=== PATIENT | female | born 1960 | race Caucasian/White ===

== ENCOUNTER 2017-09-01 17:02 | Outpatient (CLI) | payer OTHER ==
--- NOTE | 2017-09-02 17:34 | Ultrasound Report ---
PELVIC ULTRASOUND: 09/01/2017 CLINICAL INDICATION: Dysfunctional uterine bleeding. TECHNIQUE: Transabdominal pelvic ultrasound performed for global evaluation. Transvaginal pelvic ultrasound performed for detailed evaluation. Real-time scanning performed and static images obtained. FINDINGS: The uterus is anteverted, measuring 10.7 x 6.1 x 5.4 cm. The endometrial echo complex measures 13 mm. There is a 2.5 x 2.2 x 2.0 cm heterogeneous nodule in the upper cervix. Correlation with Pap smear results is recommended. This may represent a leiomyoma arising from the lower uterine segment. The right ovary measures 3.1 x 2.0 x 1.7 cm. A 1.6 cm right paraovarian cyst is noted. The left ovary measures 3.8 x 2.9 x 2.9 cm, and contains a follicle. No free fluid is present. IMPRESSION: A 2.5 CM HETEROGENEOUS NODULE IN THE UPPER CERVIX. CORRELATION WITH PAP SMEAR RESULTS IS RECOMMENDED. THIS MAY REPRESENT A LEIOMYOMA ARISING FROM THE LOWER UTERINE SEGMENT. TD: 09/02/2017 17:32
== END 2017-09-01 17:03 | disposition home or self-care (01) ==
LOC: DI 17:02
PROVIDERS: ATTEND Family Medicine
DX: N88.9 Noninflammatory disorder of cervix uteri, unspecified (principal)
CPT/HCPCS: 76830; 76856

== ENCOUNTER 2017-11-24 13:12 | Outpatient (CLI) | payer OTHER ==
--- NOTE | 2017-11-25 13:38 | Mammography Report ---
DIGITAL SCREENING MAMMOGRAM: 11/24/2017 CLINICAL INDICATION: A 57-year-old for screening. COMPARISON: 12/2014, 10/2011. TECHNIQUE: Routine CC and MLO projections were obtained of the breasts. FINDINGS: The breasts demonstrate heterogeneously dense fibroglandular parenchyma bilaterally. Punctate, typically benign calcifications are present. No suspicious masses, clustered microcalcifications, or regions of architectural distortion are identified. IMPRESSION: BENIGN FINDINGS. RECOMMENDATION: Routine annual screening unless otherwise clinically indicated. BI-RADS CATEGORY 2 - BENIGN FINDINGS. STANDARD QUALIFYING STATEMENTS: 1. This examination was reviewed with the aid of Computer-Aided Detection (CAD). 2. A negative or benign imaging report should not delay biopsy if clinically suspicious findings are present. Consider surgical consultation if warranted. More than 5% of cancers are not identified by imaging. 3. Dense breasts may obscure an underlying neoplasm. TD: 11/25/2017 13:23
== END 2017-11-24 13:13 | disposition home or self-care (01) ==
LOC: DI 13:12
PROVIDERS: ATTEND Physician Assistant Medical
DX: Z12.31 Encounter for screening mammogram for malignant neoplasm of breast (principal)
CPT/HCPCS: 77067

== ENCOUNTER 2017-11-24 20:56 | Outpatient (CLI) | payer OTHER ==
--- NOTE | 2017-11-25 10:22 | Ultrasound Report ---
PELVIC ULTRASOUND: 11/24/2017 CLINICAL INDICATION: Dysfunctional uterine bleeding. COMPARISON: 09/01/2017. TECHNIQUE: Transabdominal pelvic ultrasound performed for global evaluation. Transvaginal pelvic ultrasound performed for detailed evaluation. Real-time scanning performed and static images obtained. FINDINGS: The uterus is anteverted, measuring 10.9 x 6.2 x 5.0 cm. The endometrium measures 12 mm. A heterogeneous nodule is again seen in the lower uterine segment/upper cervix measuring 2.2 x 2.0 x 1.7 cm, suspicious for a polyp. The right ovary measures 2.8 x 1.7 x 1.4 cm, and appears unremarkable. The left ovary measures 3.3 x 3.1 x 1.9 cm, and contains a 2 cm follicle. No free fluid is present. IMPRESSION: 1. PERSISTENT HETEROGENEOUS NODULE IN THE LOWER UTERINE SEGMENT/UPPER CERVIX. 2. 12 MM ENDOMETRIUM. 3. LEFT OVARIAN FOLLICLE. TD: 11/25/2017 10:17
== END 2017-11-24 20:57 | disposition home or self-care (01) ==
LOC: DI 20:56
PROVIDERS: ATTEND Physician Assistant Medical
DX: N92.4 Excessive bleeding in the premenopausal period (principal); D26.1 Other benign neoplasm of corpus uteri
CPT/HCPCS: 76830; 76856

== ENCOUNTER 2019-06-27 18:28 | Emergency (ER) | payer OTHER ==
--- NOTE | 2019-06-27 18:58 | ED Physician Documentation ---
PD HPI FEMALE - Stated complaint Stated Complaint: FEMALE - Chief complaint Chief Complaint: Abd Pain - History obtained from History obtained from: Patient (59-year-old woman who has not yet gone through menopause, she states that menopause runs late in her whole family. Last year she had an episode like this with thickened endometrium and may be a polyp. She followed up and per her endometrial biopsy was negative. She still has regular menses although she skipped 1 but for the last 48 hours has been bleeding heavily with clots with mild weakness. No significant pain.) Review of Systems Constitutional: reports: Fatigue. denies: Fever, Chills GI: denies: Abdominal Pain, Nausea, Vomiting, Diarrhea : denies: Dysuria, Frequency PD PAST MEDICAL HISTORY - Present Medications Home Medications: Ambulatory Orders Medication Instructions Recorded Confirmed Medroxyprogesterone Acetate 10 mg PO DAILY #7 tablet 06/27/19 [Provera] - Allergies Allergies/Adverse Reactions: Allergies Allergy/AdvReac Type Severity Reaction Status Date / Time No Known Drug Allergies Allergy Verified 06/27/19 18:36 PD ED PE NORMAL - Vitals Vital signs reviewed: Yes - General General: Alert and oriented X 3, No acute distress - Abdomen Abdomen: Soft, Non tender - Derm Derm: No rash - Neuro Neuro: Alert and oriented X 3, Normal speech Results - Vitals Vitals: Vital Signs - 24 hr 06/27/19 18:36 Temperature 36.5 C Heart Rate 72 Respiratory 16 Rate Blood Pressure 170/85 H O2 Saturation 100 Oxygen O2 Source Room air - Labs Labs: Laboratory Tests 06/27/19 06/27/19 06/27/19 19:01 19:01 19:01 WBC 11.1 H RBC 2.50 L Hgb 8.0 L Hct 23.9 L MCV 95.6 MCH 32.0 H MCHC 33.5 RDW 13.4 Plt Count 221 MPV 10.2 Neut # (Auto) 8.0 H Lymph # (Auto) 2.2 [place] # (Auto) 0.7 Eos # (Auto) 0.1 Baso # (Auto) 0.1 Absolute Nucleated RBC 0.00 Nucleated RBC % 0.0 PT 10.5 INR 0.9 Sodium 138 Potassium 4.0 Chloride 103 Carbon Dioxide 27 Anion Gap 8.0 BUN 14 Creatinine 0.8 Estimated GFR (MDRD) 74 L Glucose 110 H Calcium 8.7 Serum HCG, Qual 06/27/19 19:01 WBC RBC Hgb Hct MCV MCH MCHC RDW Plt Count MPV Neut # (Auto) Lymph # (Auto) [place] # (Auto) Eos # (Auto) Baso # (Auto) Absolute Nucleated RBC Nucleated RBC % PT INR Sodium Potassium Chloride Carbon Dioxide Anion Gap BUN Creatinine Estimated GFR (MDRD) Glucose Calcium Serum HCG, Qual NEGATIVE PD MEDICAL DECISION MAKING - ED course ED course: 59yo F witgh VB H/O polyp Hgb now 8, no priors. Hemodynamics are fine. 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 Continue provera 10mg po daily x7d. F/U in office. Departure - Departure Disposition: 01 Home, Self Care Clinical Impression: Vaginal bleeding, Cervical mass, Endometrial polyp Condition: Good Record reviewed to determine appropriate education?: Yes Instructions: ED Bleed Irregular Vaginal Follow-Up: Monica Belle MD [Provider Admit Priv/Credential] - Within 1 week Prescriptions: Medroxyprogesterone Acetate [Provera] 10 mg PO DAILY #7 tablet Comments: Return anytime if worse. start your iron
[2019-06-27 19:10] LABS: BASOPHILS # (AUTO) 0.1 10^3/uL (0.0-0.1); BASOPHILS % (AUTO) 0.5 %; EOSINOPHILS # (AUTO) 0.1 10^3/uL (0.0-0.7); EOSINOPHILS % (AUTO) 0.8 %; LYMPHOCYTES # (AUTO) 2.2 10^3/uL (1.5-3.5); LYMPHOCYTES % (AUTO) 19.7 %; MEAN CORPUSCULAR HGB CONC 33.5 g/dL (32.0-36.0); MEAN CORPUSCULAR VOLUME 95.6 fL (81.0-99.0); MEAN PLATELET VOLUME 10.2 fL (7.9-10.8); MONOCYTES # (AUTO) 0.7 10^3/uL (0.0-1.0); MONOCYTES % (AUTO) 6.1 %; NEUTROPHILS % (AUTO) 71.6 %; PLT - PLATELET COUNT 221 10^3/uL (130-450); RED CELL DISTRIBUTION WIDTH 13.4 % (12.0-15.0); WHITE BLOOD COUNT 11.1 x10^3/uL (4.8-10.8)
[2019-06-27 19:14] LABS: INR 0.9 (0.8-1.2); PT - PROTHROMBIN TIME 10.5 secs (9.9-12.6)
[2019-06-27 19:16] LABS: CALCIUM 8.7 mg/dL (8.5-10.3); CREATININE 0.8 mg/dL (0.4-1.0)
[2019-06-27 19:53] LABS: HCG,QUALITATIVE BLOOD NEGATIVE
--- NOTE | 2019-06-27 20:28 | Ultrasound Report ---
Reason: vag bleed, eval endometrium Procedure Date: 06/27/2019 Accession Number: [id number] / [id number] Procedure: US - Transvaginal CPT Code: Final Report FULL RESULT: EXAM: PELVIC ULTRASOUND EXAM DATE: 06/27/2019 07:56 PM. CLINICAL HISTORY: Vaginal bleeding. Passing clots. COMPARISON: PELVIC W/TRANSVAGINAL 11/24/2017 10:21 PM. TECHNIQUE: Realtime transabdominal pelvic scan performed to identify the uterus and adnexa and as an overview of other pelvic structures, followed by transvaginal scan to provide greater detail of the uterus and adnexa, with static image documentation. FINDINGS: Uterus: Anteverted position. Normal overall size and echotexture. Masses: None. Endometrium: Septated, heterogeneous, with thickness of 11 mm right and 11 mm left. Lower endometrial polyp 15 x 4 x 12 mm. Cervix: Expanded by a heterogeneous vascular 2.4 x 2.1 x 2.2 cm abnormality. Right Ovary: Normal echotexture and blood flow. Left Ovary: Normal echotexture and blood flow. Free Fluid: None. Other: None. IMPRESSION: 1. Lower endometrial polyp 15 x 4 x 12 mm. 2. Large heterogeneous vascular abnormality within the cervix 2.4 x 2.1 x 2.2 cm. RADIA
[2019-06-27 20:58] VITALS: BP 121/79
== END 2019-06-27 21:25 | disposition home or self-care (01) ==
LOC: ED 18:28
DX: N93.9 Abnormal uterine and vaginal bleeding, unspecified (principal); N88.8 Other specified noninflammatory disorders of cervix uteri; N84.0 Polyp of corpus uteri
CPT/HCPCS: 36415; 76830; 80048; 84703; 85025; 85610; 99283; 99284; A9270; 81025

== ENCOUNTER 2019-06-29 09:36 | Day surgery (SDC) | payer OTHER ==
[2019-06-29 10:44] LABS: BASOPHILS % (AUTO) 0.2 %; EOSINOPHILS # (AUTO) 0.1 10^3/uL (0.0-0.7); EOSINOPHILS % (AUTO) 0.3 %; LYMPHOCYTES # (AUTO) 1.6 10^3/uL (1.5-3.5); LYMPHOCYTES % (AUTO) 9.2 %; MEAN CORPUSCULAR HEMOGLOBIN 31.1 pg (27.0-31.0); MEAN CORPUSCULAR VOLUME 97.2 fL (81.0-99.0); MEAN PLATELET VOLUME 9.9 fL (7.9-10.8); MONOCYTES # (AUTO) 0.9 10^3/uL (0.0-1.0); NEUTROPHILS # (AUTO) 14.5 10^3/uL (1.5-6.6); NEUTROPHILS % (AUTO) 82.9 %; PLT - PLATELET COUNT 211 10^3/uL (130-450); RED CELL DISTRIBUTION WIDTH 14.1 % (12.0-15.0); WHITE BLOOD COUNT 17.5 x10^3/uL (4.8-10.8)
[2019-06-29 10:47] LABS: HGB - HEMOGLOBIN 5.6 g/dL (12.0-16.0)
[2019-06-29 11:02] LABS: ALBUMIN 3.1 g/dL (3.2-5.5); ALBUMIN/GLOBULIN RATIO 1.6 (1.0-2.2); BILIRUBIN,TOTAL 0.2 mg/dL (0.2-1.0); CALCIUM 7.9 mg/dL (8.5-10.3); CREATININE 0.8 mg/dL (0.4-1.0); TOTAL PROTEIN 5.1 g/dL (6.7-8.2)
--- NOTE | 2019-06-29 11:29 | ED Physician Documentation ---
PD HPI ABD PAIN - Stated complaint Stated Complaint: FEMALE - Chief complaint Chief Complaint: Abd Pain - History obtained from History obtained from: Patient - History of Present Illness Timing - onset: Other (59-year-old woman with late menopause. Seen Sonam barber, 2 days ago for heavy bleeding. Ultrasound showed an endometrial polyp and a cervical lesion, hemoglobin was 8. Consulted with gynecology at the time who recommended Provera. Despite taking Provera and the prescribed dose she continues to bleed heavily with clots and dizziness when she stands up. Really no pain.) Review of Systems Ten Systems: 10 systems reviewed and negative Constitutional: reports: Fatigue Cardiac: denies: Chest pain / pressure, Palpitations Respiratory: denies: Dyspnea, Cough PD PAST MEDICAL HISTORY - Past Medical History Past Medical History: No [employer]: Other - Past Surgical History Past Surgical History: Yes General: Appendectomy - Present Medications Home Medications: Ambulatory Orders Medication Instructions Recorded Confirmed Medroxyprogesterone Acetate 10 mg PO DAILY #7 tablet 06/27/19 [Provera] - Allergies Allergies/Adverse Reactions: Allergies Allergy/AdvReac Type Severity Reaction Status Date / Time No Known Drug Allergies Allergy Verified 06/29/19 09:55 - Social History Does the pt smoke?: No Smoking Status: Never smoker Does the pt have substance abuse?: No - Family History Family history: reports: Non contributory PD ED PE NORMAL - Vitals Vital signs reviewed: Yes - General General: Alert and oriented X 3, No acute distress - HEENT HEENT: PERRL, EOMI - Neck Neck: Supple, no meningeal sign, No bony TTP - Cardiac Cardiac: RRR, No murmur - Respiratory Respiratory: No respiratory distress, Clear bilaterally - Abdomen Abdomen: Soft, Non tender - Back Back: No CVA TTP, No spinal TTP - Derm Derm: Normal color, Warm and dry - Extremities Extremities: No edema, No calf tenderness / cord - Neuro Neuro: Alert and oriented X 3, Normal speech Results - Vitals Vitals: Vital Signs - 24 hr 06/29/19 06/29/19 09:53 10:41 Temperature 36.2 C L Heart Rate 96 75 Respiratory 15 16 Rate Blood Pressure 132/78 H 115/78 O2 Saturation 100 100 Oxygen O2 Source Room air - Labs Labs: Laboratory Tests 06/29/19 06/29/19 06/29/19 10:25 10:25 10:25 WBC 17.5 H RBC 1.80 L Hgb 5.6 L* Hct 17.5 L* MCV 97.2 MCH 31.1 H MCHC 32.0 RDW 14.1 Plt Count 211 MPV 9.9 Neut # (Auto) 14.5 H Lymph # (Auto) 1.6 [place] # (Auto) 0.9 Eos # (Auto) 0.1 Baso # (Auto) 0.0 Absolute Nucleated RBC 0.03 Nucleated RBC % 0.2 Sodium 136 Potassium 3.9 Chloride 102 Carbon Dioxide 27 Anion Gap 7.0 BUN 9 Creatinine 0.8 Estimated GFR (MDRD) 74 L Glucose 105 H Calcium 7.9 L Total Bilirubin 0.2 AST 23 ALT 15 Alkaline Phosphatase 34 L Total Protein 5.1 L Albumin 3.1 L Globulin 2.0 L Albumin/Globulin Ratio 1.6 Lipase 28 Blood Type Recheck Crossmatch IS Only See Detail 06/29/19 10:54 WBC RBC Hgb Hct MCV MCH MCHC RDW Plt Count MPV Neut # (Auto) Lymph # (Auto) [place] # (Auto) Eos # (Auto) Baso # (Auto) Absolute Nucleated RBC Nucleated RBC % Sodium Potassium Chloride Carbon Dioxide Anion Gap BUN Creatinine Estimated GFR (MDRD) Glucose Calcium Total Bilirubin AST ALT Alkaline Phosphatase Total Protein Albumin Globulin Albumin/Globulin Ratio Lipase Blood Type Recheck O POSITIVE Crossmatch IS Only PD MEDICAL DECISION MAKING - ED course ED course: Hemoglobin was 8 now 5.6, spoke with Dr. Gonzalez after my evaluation about 1125 who will come in and see the patient. Blood was readied. Departure - Departure Disposition: ED Transfer to [facility] Clinical Impression: Cervical mass, Vaginal bleeding, Endometrial polyp Condition: Serious
[2019-06-29] MEDS ORDERED: LIDOCAINE MPF 2%-EPI 1:200000 20 ML VIAL ONE (13:18)
[2019-06-29] MEDS ORDERED: MIDAZOLAM 2 MG/2 ML VIAL IVP ONE (13:26)
[2019-06-29] MEDS ORDERED: ROCURONIUM 50 MG/5 ML VIAL IVP ONE (13:26)
[2019-06-29] MEDS ORDERED: NEOSTIGMINE 1 MG/1 ML 10 ML MDV IVP ONE (13:26)
[2019-06-29] MEDS ORDERED: PROPOFOL 200 MG/20 ML VIAL IVP ONE (13:26)
[2019-06-29] MEDS ORDERED: ePHEDrine 50 MG/ML VIAL IVP ONE (13:26)
[2019-06-29] MEDS ORDERED: fentaNYL 100 MCG/2 ML VIAL IVP ONE (13:26)
[2019-06-29] MEDS ORDERED: LACTATED RINGERS 1,000 ML IV ONE ×2 (13:28→14:35)
[2019-06-29] MEDS ORDERED: METHYLERGONOVINE 0.2 MG/ML VIAL ONE (13:36)
[2019-06-29] MEDS ORDERED: CARBOPROST TROMETHAMINE 250 MCG/ML AMP IM ONE (13:36)
[2019-06-29] MEDS ORDERED: miSOPROStoL 200 MCG TABLET ONE (13:36)
--- NOTE | 2019-06-29 14:07 | ANESTHESIA ---
Pre-Anesthesia VS, & Labs - Diagnosis vaginal bleeding, anemia - Procedure hysteroscopy, D&C Vital Signs: Temp Pulse Resp BP Pulse Ox 36.9 C 86 16 107/67 98 06/29/19 13:15 06/29/19 13:30 06/29/19 13:30 06/29/19 13:30 06/29/19 11:34 Height 5 ft 4 in Weight (kg) 68.039 kg Body Mass Index 25.7 - NPO Last Food Intake: 4 hours - Is Patient ?: No - Lab Results Current Lab Results: Laboratory Tests 06/29/19 10:54: Blood Type Recheck O POSITIVE 06/29/19 10:25: Blood Type O POSITIVE, Antibody Screen NEGATIVE, Crossmatch IS Only See Detail 06/29/19 10:25: Sodium 136, Potassium 3.9, Chloride 102, Carbon Dioxide 27, Anion Gap 7.0, BUN 9, Creatinine 0.8, Estimated GFR (MDRD) 74 L, Glucose 105 H, Calcium 7.9 L, Total Bilirubin 0.2, AST 23, ALT 15, Alkaline Phosphatase 34 L, Total Protein 5.1 L, Albumin 3.1 L, Globulin 2.0 L, Albumin/Globulin Ratio 1.6, Lipase 28 06/29/19 10:25: WBC 17.5 H, RBC 1.80 L, Hgb 5.6 L*, Hct 17.5 L*, MCV 97.2, MCH 31.1 H, MCHC 32.0, RDW 14.1, Plt Count 211, MPV 9.9, Neut # (Auto) 14.5 H, Lymph # (Auto) 1.6, [place] # (Auto) 0.9, Eos # (Auto) 0.1, Baso # (Auto) 0.0, Absolute Nucleated RBC 0.03, Nucleated RBC % 0.2 Lab results reviewed: Yes Fish Bones: 06/29/19 10:25 06/29/19 10:25 Home Medications and Allergies Allergies/Adverse Reactions: Allergies Allergy/AdvReac Type Severity Reaction Status Date / Time No Known Drug Allergies Allergy Verified 06/29/19 09:55 Anes History & Medical History - Anesthetic History Anesthesia Complications: reports: No previous complications Family history of Anesthesia Complications: Denies Family history of Malignant Hyperthermia: Denies - Medical History Cardiovascular: reports: None, Congestive heart failure Urinary: reports: Other Musculoskeletal: reports: None (recent vaginal bleeding) Smoking Status: Never smoker - Surgical History General: Appendectomy Exam General: Alert, Oriented x3, Cooperative Dental: WNL Mouth Openin Fingerbreadth Neck Mobility: Reduced Thyromental Distance: 4-6 cm Respiratory: Lungs clear, Normal breath sounds Neurological: Normal speech Mental/Cognitive Status: Alert/Oriented X3, Normal for patient Cognitive Status: Within normal limits, Other (describe below) Plan Anesthesia Type: General Consent for Procedure(s) Verified and Reviewed: Yes Code Status: Attempt Resuscitation ASA classification: 1-Healthy patient Is this case an emergency?: Yes
[2019-06-29] MEDS ORDERED: LIDOCAINE 2%-EPI 1:100000 20 ML MDV SUBQ ONE ×2 (14:18)
[2019-06-29 14:30] LABS: HCG UR QUAL NEGATIVE
[2019-06-29] MEDS ORDERED: SILVER NITRATE APPLICATOR TOP ONE ×2 (14:52→14:55)
[2019-06-29] MEDS ORDERED: ONDANSETRON ODT 4 MG TABLET TL PRN (15:12)
[2019-06-29] MEDS ORDERED: IBUPROFEN 600 MG TABLET PO PRN (15:12)
[2019-06-29] MEDS ORDERED: oxyCODONE 5 MG TABLET PO PRN (15:12)
[2019-06-29] MEDS ORDERED: ACETAMINOPHEN 500 MG TABLET PO PRN (15:12)
[2019-06-29] MEDS ORDERED: SODIUM CHLORIDE FLUSH 0.9% 10 ML SYRINGE IVP PRN (15:12)
--- NOTE | 2019-06-29 15:19 | OPERATIVE REPORT ---
Operative Report - General Procedure Date: 06/29/19 Planned Procedure: HSC, D&C, removal of intracavitary uterine mass Pre-Op Diagnosis: AUB, uterine mass Procedure Performed: same Post Op Diagnosis: AUB, uterine mass - Procedure Note Primary Surgeon: Carlos Anesthesia Technique: General ET tube Pathology: Uterine intracavitary mass & curettings IV Fluids (mL): 1,200 (1200 crystalloid, 600 PRBC) Estimated Blood Loss (mL): 20 Findings: Intracavitary mass in [place]/upper cervix. Both ostea seen. Not septated. Complications: none
[2019-06-29] MEDS ORDERED: LACTATED RINGERS 1,000 ML IV SCH (16:00)
--- NOTE | 2019-06-29 16:11 | HISTORY & PHYSICAL EXAMINATION ---
DATE OF SERVICE: 06/29/2019 Physician: Jasmyn Gonzalez MD CHIEF COMPLAINT: Heavy period and dizziness. HISTORY OF PRESENT ILLNESS: The patient is a 59-year-old who is still menstruating. She presented t o the ER two days ago with heavy menstrual bleeding. She received an ultrasound that day as she was hemodynamically stable. Her hematocrit that day was 23.9. The patient was healthy and wanted to alexandra id transfusion. She was placed on Provera and sent home with precautions. Over the past two days, she has continued to have heavy bleeding. She is soaking an overnight pad ev paola 3 hours. She is also passing clots into the toilet that are the diameter of a plum. She has beg un feeling more tired and faint. She is feeling like her heart is beating very fast after she walks up stairs. She feels her heart pounding in her ears. She has an increased heart rate while standing . She has a headache as well, which is uncommon for her. Her menses used to be monthly until about three to four months ago. They were very light in general with true flow for three days and some spo tting for three days prior to that. She described that flow is "light". Then, with this cycle, she d id not feel herself ovulate. She had increased breast tenderness and bloating as compared to usual. Her period then started heavy and has continued. She does not have any bleeding between her cycles. She is not sexually active. She is not on contraception. She was seen by Dr. Soto for an evaluation in the spring of 2017 for another heavy period. Her mense s were normal in the interim. Her workup included an ultrasound that revealed an intrauterine cavity mass that measured 1.6 cm on 07/01/2018. She received an endometrial biopsy on 12/28/2017 that was d isordered proliferative with polypoid fragments suggestive of benign endometrial polyps. Her Pap on 10/25/2017 showed a normal Pap and negative high-risk HPV. Her hematocrit in 2014 was 41. When she had her heavy period last year in 08/2017, it was 33. PAST MEDICAL HISTORY: Negative. PAST SURGICAL HISTORY: The patient had an open appendectomy at 13 years old that sounds like it was ruptured at the time of removal. She then developed a wound infection one week later and her wound n eeded to be reopened. She also had thumb surgery. No personal history of anesthesia complications. FAMILY HISTORY: No anesthesia complications. SOCIAL HISTORY: No tobacco, alcohol or drug use. 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 ALLERGIES: NO KNOWN DRUG ALLERGIES. MEDICATIONS: No prescription medications. She has taken iron t.i.d. for the past two days. She als o intermittently takes fish oil, vitamin D, and multivitamins. REVIEW OF SYSTEMS: No fevers or URI symptoms. She last consumed nontransparent liquids at 0800. Kurt rodriguez has not received any food since yesterday. PHYSICAL EXAMINATION: VITAL SIGNS: Temperature 36.2, heart rate 78, respirations 16, blood pressure 115/78, oxygen saturat ion 100% on room air. GENERAL: The patient is alert and appears comfortable. She is also pale. HEART: Regular rate and rhythm with a 2/6 systolic murmur. LUNGS: Clear to auscultation bilaterally. ABDOMEN: Soft, nontender, nondistended without masses. EXTREMITIES: Without clubbing, cyanosis or edema. The patient is ambulatory and does not have any n eurologic deficits. LABORATORY: Ultrasound on 06/27/2019 revealed a "septated uterus" with an endometrium of 11 mm and a 15 x 4 x 12 mm lesion consistent with an endometrial polyp. In the cervix, there was a 2.4 x 2.1 x 2 .1 cm circular mass with increased color flow to it. I reviewed this ultrasound and her prior ultras ound. Her prior ultrasound did not suggest a septic uterus. I am wondering if she just had some org anized clot that gave that appearance on the current ultrasound. I am not convinced about the upper endometrial polyp because there was not any color flow to that area, and again I am suspicious of org anized clot. At her last ultrasound, this mass was in the same location and measured 1.6 cm. Her he matocrit was 23.9 on the 06/27/2019. Today it is 17.5. ASSESSMENT AND PLAN: A healthy 59-year-old with a likely anovulatory period complicated by ongoing h eavy bleeding, anemia that is worsening despite hormonal management, and intracavitary uterine mass. As her anemia is symptomatic and her hematocrit is quite low, she has been counseled to receive pack ed red blood cells. She was counseled about the risks and benefits of this and is accepting of the b lood. She will receive 2 units. If she is oozy during the surgery, then we will also give FFP. The patient's intracavitary uterine mass has been rather stable over time. It is only grown from 1.6 cm to 2.1 cm in the past 22 months. Last year, she had a benign biopsy and she has had normal Pap s mear. I do think that this stable mass appearance decreases the chance of sarcoma by quite a bit. We reviewed the patient's options for treatment that include: 1. Ongoing management with Provera, which is not working now and was not recommended. 2. Adding estrogen to the progesterone which can be more stabilizing to the endometrium, but I do no t recommend this either because of the following. 3. Sampling of the uterine masses is recommended at this point. The least invasive way to do this w ould be to do a hysteroscopy, dilation and curettage, and MyoSure resection of the masses. The patie nt chooses this option for treatment. She is aware that it might not cure her bleeding, but hopefull y it will. She is aware that the procedure was recommended to sample the masses. Additional treatme nt to help the bleeding itself was recommended and declined by the patient. We discussed using a James babatunde IUD or endometrial ablation to help to manage future menses. She is wary of too much interventio n. [place] or away from immediate medical care. She is reliable . Therefore, I think that her decision for hysteroscopy alone is reasonable. 4. Her final option is hysterectomy, which the patient declines for now. As she is never remote for medical care, I agree that a hysterectomy is not absolutely necessary at this time, especially since she is 59 and hopefully her last period is just around the corner. The patient is continuing to have uterine bleeding at the age of 59. This sounds like menses, as it is a cyclic and she feels herself ovulating and has not gone through a period of amenorrhea. Her mot her and sisters also went through menopause in their late 50s. We will plan to go to the OR now for her hysteroscopy, D and C, and mass resection. We will give 2 u nits of packed red blood cells. We will observe on postop for bleeding. If she is stable and is asy mptomatic from an anemia standpoint, then she may go home later on this evening. TD: 06/29/2019 13:49
[2019-06-29] MEDS ORDERED: SODIUM CHLORIDE FLUSH 0.9% 10 ML SYRINGE IVP SCH (17:00)
[2019-06-29 19:43] VITALS: BP 101/61
--- NOTE | 2019-06-29 19:44 | Discharge Plan ---
Discharge Plan Problem Reviewed?: Yes Disposition: Home, Self Care Condition: Good Diet: Regular Activity Restrictions: No Restrictions Shower Restrictions: No Driving Restrictions: Yes (not for 24h) No Smoking: If you smoke, Please STOP! Call for help.
[2019-06-29 19:52] LABS: BASOPHILS % (AUTO) 0.3 %; HGB - HEMOGLOBIN 8.6 g/dL (12.0-16.0); LYMPHOCYTES % (AUTO) 2.5 %; MEAN CORPUSCULAR HEMOGLOBIN 31.3 pg (27.0-31.0); MEAN CORPUSCULAR HGB CONC 33.3 g/dL (32.0-36.0); MEAN CORPUSCULAR VOLUME 93.8 fL (81.0-99.0); MEAN PLATELET VOLUME 9.8 fL (7.9-10.8); MONOCYTES % (AUTO) 1.3 %; NEUTROPHILS % (AUTO) 93.6 %; PLT - PLATELET COUNT 203 10^3/uL (130-450); RED BLOOD COUNT 2.75 10^6/uL (4.20-5.40); WHITE BLOOD COUNT 24.9 x10^3/uL (4.8-10.8)
[2019-06-29 19:56] LABS: ABNORMAL LYMPHS % (MANUAL) 0 %
[2019-06-29 20:27] LABS: BAND NEUTROPHILS % (MANUAL) 1 %; DIFFERENTIAL COMMENT MANUAL DIFFERENTIAL; EOSINOPHILS # (MANUAL) 0.2 10^3/uL (0-0.7); LYMPHOCYTES % (MANUAL) 4 %; PLATELET ESTIMATE, MANUAL NORMAL (130-450,000) (NORMAL); PLATELET MORPHOLOGY NORMAL APPEARANCE (NORMAL); RBC MORPHOLOGY (MULTIPLE) NORMAL APPEARANCE (NORMAL)
--- NOTE | 2019-06-30 01:55 | OPERATIVE REPORT ---
DATE OF SERVICE: 06/29/2019 Physician: Jasmyn Gonzalez MD PREOPERATIVE DIAGNOSES 1. Abnormal uterine bleeding. 2. Acute blood loss anemia. 3. Intracavitary uterine mass. POSTOPERATIVE DIAGNOSES 1. Abnormal uterine bleeding. 2. Acute blood loss anemia. 3. Intracavitary uterine mass. PROCEDURE PERFORMED: Hysteroscopy, dilation and curettage, and hysteroscopic removal of intracavitar y mass. SURGEON: Jasmyn Gonzalez MD. VEHICLE DYNAMICS ENGINEER: None. ANESTHESIA: General. ESTIMATED BLOOD LOSS: 20 mL INTRAVENOUS FLUIDS: A total of 1800 mL; 1200 were crystalloid and 600 packed red blood cells. URINE OUTPUT: None--The patient voided immediately prior to going to the operating room. COUNTS: Correct x2. COMPLICATIONS: None apparent. DISPOSITION: Stable to the recovery room. PROPHYLAXIS: SCDs to bilateral lower extremities. No antibiotics indicated. SPECIMENS: Intracavitary uterine mass and endometrial curettings sent to pathology. FINDINGS 1. Normal uterine cavity shape and both tubal ostia were seen. No evidence of septation. 2. There was fluffy endometrial tissue, but no discrete polyps were seen. 3. There was a large intracavitary mass filling the upper cervix and the lower uterine segment. It was firm and round, consistent with fibroid. COUNSELING: The patient is a 59-year-old who continues to have regular menses. Her menses this yovanny h was very heavy, which is not usual for her. She presented to the ER with hematocrit of 24 two days ago. It was asymptomatic and she was placed on Provera. Forty eight hours later, she presents with symptomatic anemia and a hematocrit of 15. Her transfusion was started in the ER and she was consen deloris for surgical treatment. She was offered the procedure that we performed with or without addition of an IUD or NovaSure endometrial ablation in order to control future bleeding. She declined treatm ent for future bleeding and, instead, wanted to focus on sampling her intracavitary mass. She was aw are that the surgery might not work to correct her current bleeding. She was also offered hysterecto my, which she currently declines. DESCRIPTION OF PROCEDURE: The patient was brought to the operating room and induced with general ane sthesia. She was placed in low lithotomy and Yellofin stirrups. Bimanual examination revealed an an teverted uterus and no adnexal masses. She was prepped and draped in the usual sterile fashion. A s peculum was placed and a single-tooth tenaculum was applied on the anterior lip of the cervix. Then, 12 mL of a paracervical block was injected in divided doses of 2% lidocaine with epinephrine. The c ervix was easily dilated to 7 mm. The operative hysteroscope was then introduced into the uterine ca vity where the above findings were encountered. The MyoSure "heavy" was used to morcellate the fibro id and to shave down her endometrium. The hysteroscope was removed and a sharp pass was performed wi th good cry felt throughout. The patient had a fluid deficit of 700 mL. The deficit does not includ e the fluid that was lost on godwin and a saturated sheet, so the deficit was likely much less than th is. The patient will be observed for a few hours following the procedure to make sure that her bleed ing is not heavy and that her anemia is no longer symptomatic. TD: 06/29/2019 19:13
--- NOTE | 2019-06-30 02:02 | DISCHARGE SUMMARY ---
Physician: Jasmyn Gonzalez MD DATE OF ADMISSION: 06/29/2019 DATE OF DISCHARGE: 06/29/2019 ADMISSION DIAGNOSES 1. Acute blood loss anemia, symptomatic. 2. Intracavitary uterine mass. 3. Abnormal uterine bleeding. DISCHARGE DIAGNOSES 1. Acute blood loss anemia, not symptomatic. 2. Abnormal uterine bleeding. OPERATIONS AND PROCEDURES: On 06/29/2019 transfusion of 2 units of packed red blood cells. She had a dilation and curettage, hysteroscopy, removal of intracavitary uterine mass. HOSPITAL COURSE: The patient has had a very heavy period. She was seen in the ER 2 days ago, and he r hematocrit was 24. She was hemodynamically stable and asymptomatic and so she was sent home with P rovera treatment. She continued to bleed heavily and developed symptoms including headache, feeling faint, feeling weak and feeling an increased heart rate. Her hematocrit was 17.5. A transfusion was started and operative management was recommended. Ultrasound had revealed a 2 cm intracavitary mass , as well as a possible uterine polyp. We discussed surgical options. Management of further periods with endometrial ablation or Mirena IUD was encouraged, but the patient wanted to start with the rubio st invasive treatment as possible. She also declined hysterectomy. The patient was admitted and underwent the hysteroscopic resection. The mass appeared to be a fibroi d that was trying to abort out of the cervix. The cervix was dilated a bit and, hopefully, the myome ctomy will improve her bleeding. She is aware that it might not and she needs to present for immedia te care if her bleeding increases again. Postoperatively, she was observed for hours to ensure that she was hemodynamically stable. A postop hematocrit had increased to 25.8. The patient was feeling markedly better, without headache or fatigue. She was ambulating without difficulties or symptoms. Her vitals were normal with a temperature of 98.1, heart rate 95, blood pressure 101/61, respiration rate 16, and oxygen saturation 98% on room air. She did not have any pelvic pain or cramping. Her v aginal bleeding was scant. DISCHARGE INSTRUCTIONS 1. Follow up immediately p.r.n. heavy menstrual bleeding. 2. Follow up immediately p.r.n. signs of anemia. 3. Routine postoperative precautions were given. DISCHARGE MEDICATIONS: The patient is not on any routine home medications. She was advised to take iron b.i.d. Followup in [address] Thornton. DISPOSITION: Home. CONDITION: Good. OUTSTANDING LABORATORY: Intracavitary uterine mass and endometrial curettings to pathology. TD: 06/29/2019 20:16
== END 2019-06-29 20:33 | disposition home or self-care (01) ==
LOC: ED 09:36 → SDS 13:25 → MS2 16:05 → SDS 20:33
PROVIDERS: ATTEND Obstetrics & Gynecology
PROC: 0UDB7ZX Extraction of Endometrium, Via Natural or Artificial Opening, Diagnostic (ICD-10-PCS; 2019-06-29)
PROC: 0UJD8ZZ Inspection of Uterus and Cervix, Via Natural or Artificial Opening Endoscopic (ICD-10-PCS; 2019-06-29)
PROC: 0UB98ZZ Excision of Uterus, Via Natural or Artificial Opening Endoscopic (ICD-10-PCS; principal; 2019-06-29 13:30)
DX: D26.1 Other benign neoplasm of corpus uteri (principal); D62 Acute posthemorrhagic anemia; Z01.812 Encounter for preprocedural laboratory examination
CPT/HCPCS: 36415; 58558; 58561; 80053; 81025; 83690; 85025; 86850; 86900; 86901; 86920; 99284; 99285; J7120; P9016

== ENCOUNTER 2019-07-06 15:45 | Outpatient (CLI) | payer OTHER ==
[2019-07-06 15:59] LABS: HGB - HEMOGLOBIN 8.5 g/dL (12.0-16.0); MEAN CORPUSCULAR HEMOGLOBIN 31.8 pg (27.0-31.0); MEAN CORPUSCULAR HGB CONC 31.4 g/dL (32.0-36.0); MEAN CORPUSCULAR VOLUME 101.5 fL (81.0-99.0); MEAN PLATELET VOLUME 9.3 fL (7.9-10.8); RED BLOOD COUNT 2.67 10^6/uL (4.20-5.40); RED CELL DISTRIBUTION WIDTH 17.4 % (12.0-15.0); WHITE BLOOD COUNT 12.2 x10^3/uL (4.8-10.8)
== END 2019-07-06 15:46 | disposition home or self-care (01) ==
LOC: LAB 15:45
PROVIDERS: ATTEND Obstetrics & Gynecology
DX: N93.8 Other specified abnormal uterine and vaginal bleeding (principal)
CPT/HCPCS: 36415; 85027

== ENCOUNTER 2019-07-07 14:39 | Emergency (ER) | payer OTHER ==
--- NOTE | 2019-07-07 15:28 | ED Physician Documentation ---
History of Present Illness - Stated complaint Stated Complaint: SOA - POST OP - Chief complaint Chief Complaint: Resp - History obtained from History obtained from: Patient - History of Present Illness Timing: Today Pain level max: 0 Pain level now: 0 - Additonal information Additional information: 59-year-old female states that she Had surgery on 1226 for uterine mass with bleeding. She states that since that time she has been feeling weaker than usual. She went back to work 2 days ago and has had to stop more frequently than she used to. She has not had any chest pain. No shortness of breath at rest. Better with rest, worse with exertion. 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: Other : Other Musculoskeletal: None - Past Surgical History Past Surgical History: Yes General: Appendectomy - Present Medications Home Medications: Ambulatory Orders Medication Instructions Recorded Confirmed Medroxyprogesterone Acetate 10 mg PO DAILY #7 tablet 06/27/19 [Provera] - Allergies Allergies/Adverse Reactions: Allergies Allergy/AdvReac Type Severity Reaction Status Date / Time No Known Drug Allergies Allergy Verified 07/07/19 14:48 - Social History Does the pt smoke?: No Smoking Status: Never smoker Does the pt have substance abuse?: No PD ED PE NORMAL - Vitals Vital signs reviewed: Yes - General General: Alert and oriented X 3, No acute distress, Well developed/nourished - HEENT HEENT: Moist mucous membranes - Neck Neck: Supple, no meningeal sign - Cardiac Cardiac: RRR, Strong equal pulses - Respiratory Respiratory: No respiratory distress, Clear bilaterally - Abdomen Abdomen: Soft, Non tender, Non distended - Derm Derm: Warm and dry - Extremities Extremities: No edema, No calf tenderness / cord - Neuro Neuro: Alert and oriented X 3, soap maker 2-12 intact, No motor deficit, No sensory deficit, Normal speech - Psych Psych: Normal mood, Normal affect Results - Vitals Vitals: Vital Signs - 24 hr 07/07/19 07/07/19 07/07/19 14:43 14:47 16:47 Temperature 35.7 C L Heart Rate 80 80 58 L Respiratory 16 16 14 Rate Blood Pressure 134/85 H 134/85 H 124/85 H O2 Saturation 100 100 100 Oxygen O2 Source Room air - EKG (time done) 1453 Rate: Rate (enter#) (63) Rhythm: NSR [place]: Normal Intervals: Normal [place] QRS: Normal Ischemia: Normal ST segments - Labs Labs: Laboratory Tests 07/07/19 07/07/19 07/07/19 15:35 15:35 15:35 WBC 10.9 H RBC 2.78 L Hgb 9.0 L Hct 28.1 L MCV 101.1 H MCH 32.4 H MCHC 32.0 RDW 17.4 H Plt Count 332 MPV 9.6 Neut # (Auto) 8.5 H Lymph # (Auto) 1.5 [place] # (Auto) 0.6 Eos # (Auto) 0.1 Baso # (Auto) 0.1 Absolute Nucleated RBC 0.00 Nucleated RBC % 0.0 Sodium 136 Potassium 3.5 Chloride 105 Carbon Dioxide 25 Anion Gap 6.0 BUN 17 Creatinine 1.1 H Estimated GFR (MDRD) 51 L Glucose 87 Calcium 8.6 Total Bilirubin 0.4 AST 42 ALT 33 Alkaline Phosphatase 46 Troponin I High Sens 3.9 Total Protein 6.6 L Albumin 3.9 Globulin 2.7 Albumin/Globulin Ratio 1.4 Lipase 41 Blood Type Antibody Screen 07/07/19 15:47 WBC RBC Hgb Hct MCV MCH MCHC RDW Plt Count MPV Neut # (Auto) Lymph # (Auto) [place] # (Auto) Eos # (Auto) Baso # (Auto) Absolute Nucleated RBC Nucleated RBC % Sodium Potassium Chloride Carbon Dioxide Anion Gap BUN Creatinine Estimated GFR (MDRD) Glucose Calcium Total Bilirubin AST ALT Alkaline Phosphatase Troponin I High Sens Total Protein Albumin Globulin Albumin/Globulin Ratio Lipase Blood Type O POSITIVE Antibody Screen NEGATIVE - Rads (name of study) cxr Radiology: Prelim report reviewed, EMP read contemporaneously, See rad report (: No acute cardiopulmonary abnormality. ) PD MEDICAL DECISION MAKING - ED course Complexity details: reviewed old records, reviewed results, re-evaluated patient, considered differential, d/w patient ED course: Patient with continued anemia, but improving. No evidence of pulmonary embolus. No tachycardia. No hypoxia. She is very well-appearing, nontoxic. No EKG findings. No other significant lab abnormalities. Patient counseled regarding signs and symptoms for which I believe and urgent re-evaluation would be necessary. Patient with good understanding of and agreement to plan and is comfortable going home at this time This document was made in part using voice recognition software. While efforts are made to proofread this document, sound alike and grammatical errors may occur. Departure - Departure Disposition: 01 Home, Self Care Clinical Impression: Weakness Anemia Qualifiers: Anemia type: unspecified type Qualified Code(s): D64.9 - Anemia, unspecified Condition: Good Instructions: ED Anemia Type Not Specified Follow-Up: Margarito Thornton MD [Primary Care Provider] - Within 1 week Comments: Rest this weekend. Return if you worsen. Follow-up with your egg tester for further care. Discharge Date/Time: 07/07/19 17:16
[2019-07-07 15:49] LABS: BASOPHILS # (AUTO) 0.1 10^3/uL (0.0-0.1); BASOPHILS % (AUTO) 0.6 %; EOSINOPHILS # (AUTO) 0.1 10^3/uL (0.0-0.7); LYMPHOCYTES # (AUTO) 1.5 10^3/uL (1.5-3.5); LYMPHOCYTES % (AUTO) 13.6 %; MEAN CORPUSCULAR HEMOGLOBIN 32.4 pg (27.0-31.0); MEAN CORPUSCULAR VOLUME 101.1 fL (81.0-99.0); MEAN PLATELET VOLUME 9.6 fL (7.9-10.8); MONOCYTES # (AUTO) 0.6 10^3/uL (0.0-1.0); MONOCYTES % (AUTO) 5.9 %; NEUTROPHILS # (AUTO) 8.5 10^3/uL (1.5-6.6); NEUTROPHILS % (AUTO) 77.9 %; PLT - PLATELET COUNT 332 10^3/uL (130-450); RED BLOOD COUNT 2.78 10^6/uL (4.20-5.40); RED CELL DISTRIBUTION WIDTH 17.4 % (12.0-15.0); WHITE BLOOD COUNT 10.9 x10^3/uL (4.8-10.8)
[2019-07-07 16:02] LABS: ALBUMIN 3.9 g/dL (3.2-5.5); ALBUMIN/GLOBULIN RATIO 1.4 (1.0-2.2); BILIRUBIN,TOTAL 0.4 mg/dL (0.2-1.0); CALCIUM 8.6 mg/dL (8.5-10.3); CREATININE 1.1 mg/dL (0.4-1.0); TOTAL PROTEIN 6.6 g/dL (6.7-8.2)
--- NOTE | 2019-07-07 16:29 | XRAY Report ---
Reason: chest pain Procedure Date: 07/07/2019 Accession Number: [id number] / [id number] Procedure: XR - Chest 1 View X-Ray CPT Code: 58475 Final Report FULL RESULT: EXAM: CHEST RADIOGRAPHY EXAM DATE: 07/07/2019 04:06 PM. CLINICAL HISTORY: Chest pain. COMPARISON: None. TECHNIQUE: 1 view. FINDINGS: Lungs/Pleura: No focal opacities evident. No pleural effusion. No pneumothorax. Mediastinum: Within exam limitations, the cardiomediastinal contour is normal. Other: None. IMPRESSION: No acute cardiopulmonary abnormality. RADIA
[2019-07-07 17:16] VITALS: BP 124/85
== END 2019-07-07 17:16 | disposition home or self-care (01) ==
LOC: ED 14:39
DX: R53.1 Weakness (principal); D64.9 Anemia, unspecified; Z98.890 Other specified postprocedural states
CPT/HCPCS: 36415; 71045; 80053; 83690; 84484; 85025; 86850; 86900; 86901; 93005; 99284

== ENCOUNTER 2019-07-20 16:20 | Outpatient (CLI) | payer OTHER ==
--- NOTE | 2019-07-21 07:59 | Ultrasound Report ---
Reason: DYSFUNCTIONAL UTERINE BLEEDING, MASS Procedure Date: 07/20/2019 Accession Number: [id number] / [id number] Procedure: US - Pelvic w/Transvaginal CPT Code: Final Report FULL RESULT: EXAM: PELVIC ULTRASOUND EXAM DATE: 07/20/2019 08:10 PM. CLINICAL HISTORY: Dysfunctional uterine bleeding, follow-up lower uterine segment upper cervical nodule. COMPARISON: PELVIC W/TRANSVAGINAL 11/24/2017 10:21 PM. TECHNIQUE: Realtime transabdominal pelvic scan performed to identify the uterus and adnexa and as an overview of other pelvic structures, followed by transvaginal scan to provide greater detail of the uterus and adnexa, with static image documentation. FINDINGS: Uterus: 10.8 x 5.3 x 6.1 cm, volume 184 cc. Anteverted position. Normal overall size and echotexture. Masses: None. Endometrium: 11 mm. An arcuate uterus is noted. No masses or fluid identified. Cervix: Small nabothian cyst noted. Right Ovary: 4.0 x 3.7 x 4.4 cm, volume 34 cc. A simple anechoic cyst measures 2.2 x 3.1 x 3.7 cm. No evidence for torsion. Left Ovary: 2.6 x 1.2 x 1.0 cm, volume 2 cc. Normal echotexture and blood flow. Free Fluid: None. Other: None. IMPRESSION: 1. Heterogeneous nodule in lower uterine segment or upper cervix seen previously no longer identified on current study. 2. New 3.7 cm right ovarian cyst or follicle. 3. Interval resolution of the 2 cm left ovarian cyst or follicle. RADIA
== END 2019-07-20 16:21 | disposition home or self-care (01) ==
LOC: DI 16:20
PROVIDERS: ATTEND Obstetrics & Gynecology
DX: N83.291 Other ovarian cyst, right side (principal)
CPT/HCPCS: 76830; 76856

== ENCOUNTER 2019-10-18 07:39 | Outpatient (CLI) | payer OTHER ==
[2019-10-18 08:25] LABS: % IRON SATURATION 22 % (20-50); IRON 83 ug/dL (28-170); TOTAL IRON BINDING CAPACITY 372 ug/dL (250-450); TRANSFERRIN 266 mg/dL (192-382)
[2019-10-18 08:31] LABS: FERRITIN 19.8 ng/mL (11.0-306.8)
[2019-10-18 08:54] LABS: FOLLICLE STIMULATING HORMONE 7.34 mIU/mL
== END 2019-10-18 07:40 | disposition home or self-care (01) ==
LOC: LAB 07:39
PROVIDERS: ATTEND Obstetrics & Gynecology
DX: N92.4 Excessive bleeding in the premenopausal period (principal); N83.299 Other ovarian cyst, unspecified side
CPT/HCPCS: 36415; 82728; 83001; 83540; 84144; 84466

== ENCOUNTER 2020-10-29 09:58 | Emergency (ER) | payer OTHER, BC ==
--- OUTSIDE RECORDS SUMMARY | 2020-10-29 10:57 | EXTERNAL MEDICAL SUMMARY RPT | Continuity of Care Document ---
:1960 Demographics Phone Unavailable Preferred Language Unknown Marital Status Unknown Rastafari Affiliation Unknown Race Unknown Ethnic Group Unknown Author Organization [facility] Address [address] [phone] Phone Social History date description facility [id number]
--- NOTE | 2020-10-29 11:07 | ED Physician Documentation ---
PD HPI HEENT - Stated complaint Stated Complaint: LIP LAC - Chief complaint Chief Complaint: Laceration - History obtained from History obtained from: Patient - History of Present Illness Timing - onset: How many hours ago (1), Today Timing - details: Abrupt onset, Still present Location: Mouth (right upper lip outer aspect with lac through to inside. 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 ), Other (right upper lip with 1 cm lac outer aspect, not crossing malorie border. No FB nor any active bleeding right now. Inner aspect of the lip with 1 cm lac inside as well. No FB there. No bleeding. Does not expose fatty tissue. ) - Derm Derm: Normal color, Warm and dry Results - Vitals Vitals: Vital Signs - 24 hr 10/29/20 10/29/20 10:06 12:06 Temperature 36.6 C 37.0 C Heart Rate 62 69 Respiratory 16 18 Rate Blood Pressure 136/74 H 112/71 O2 Saturation 100 98 Oxygen O2 Source Room air Procedures - Laceration (location) right upper lip Length in cm: 1 Wound type: Stellate, Clean Neurovascular status: Sensory intact, Motor intact Wound preparation: Wound explored, To the base. No: FB identified Skin layer closure: Dermabond, Steri strips Other: Patient tolerated well, No complications, Neurovascular intact, Tetanus UTD Departure - Departure Disposition: 01 Home, Self Care Clinical Impression: Laceration of lip Qualifiers: Encounter type: initial encounter Qualified Code(s): S01.511A - Laceration without foreign body of lip, initial encounter Condition: Stable Record reviewed to determine appropriate education?: Yes Instructions: ED Laceration Facial Skin Glue Follow-Up: Rashida Henderson PA-C [Primary Care Provider] - Comments: Keep the taping glue clean and dry. Allow to fall off on its own after several days or more. You can cover with a Band-Aid if you prefer for appearance. Clean the inside lip injury with just clean water or dilute peroxide and water after meals. Recheck if signs of infection. Otherwise this should heal up okay. Discharge Date/Time: 10/29/20 12:09
[2020-10-29 12:07] VITALS: BP 112/71
== END 2020-10-29 12:09 | disposition home or self-care (01) ==
LOC: ED 09:58
DX: S01.511A Laceration without foreign body of lip, initial encounter (principal); W26.9XXA Contact with unspecified sharp object(s), initial encounter; Y99.0 Civilian activity done for income or pay
CPT/HCPCS: 1040M; 12011; 99281; 99282

== ENCOUNTER 2022-01-14 20:26 | Outpatient (CLI) | payer BC ==
--- NOTE | 2022-01-15 12:36 | Ultrasound Report ---
PROCEDURE: Pelvic w/Transvaginal INDICATIONS: OVARIAN CYST TECHNIQUE: Real-time scanning was performed of the pelvic organs, with image documentation. Additional endovagi nal scanning was necessary due to incomplete visualization of the adnexal and endometrial structures by transabdominal scanning. COMPARISON: 07/20/2019 FINDINGS: Uterus: Uterus is anteverted and normal in size at 9.6 x 4.8 x 3.6 cm. The myometrium is homogeneou s. The endometrium measures 7.5 mm in combined thickness. Nabothian cyst identified. Ovaries: The right ovary measures 2.1 x 1.3 x 2.1 cm, with a calculated ovarian volume of 3.0 cc. T he left ovary is not well-seen due to bowel gas but left ovary measures 3.0 x 1.0 cm where visualized . There is a 1.2 cm simple cyst/dominant follicle in the right ovary. Less than 12 follicles can be s een in each ovary. No adnexal masses are seen. Other: No pathologic free abdominal or pelvic fluid. IMPRESSION: 1. Uterus is sonographically normal. 2. 1.2 cm simple right ovarian cyst. 3. Left ovary suboptimally visualized due to bowel gas. No gross sonographic abnormality identified i n the visualized portion of the left ovary. Reviewed by: Kim Guerrier MD, PhD on 01/15/2022 12:35 PM PDT Approved by: Kim Guerrier MD, PhD on 01/15/2022 12:35 PM PDT Station ID: [id number]
== END 2022-01-14 20:27 | disposition home or self-care (01) ==
LOC: DI 20:26
PROVIDERS: ATTEND Physician Assistant Medical
DX: N83.291 Other ovarian cyst, right side (principal)

== ENCOUNTER 2022-03-16 10:17 | Outpatient (CLI) | payer BC | END 2022-03-16 10:18 | disposition critical access hospital (66) | LOC: EMS 10:17 | DX: S01.01XA Laceration without foreign body of scalp, initial encounter (principal); R07.81 Pleurodynia; V48.5XXA Car driver injured in noncollision transport accident in traffic accident, initial encounter; Y92.413 State road as the place of occurrence of the external cause | CPT/HCPCS: A0425; A0429 ==

== ENCOUNTER 2022-03-16 10:26 | Emergency (ER) | payer OTHER, BC ==
[2022-03-16] MEDS ORDERED: KETOROLAC 15 MG/ML VIAL IVP STA (10:47)
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
[2022-03-16 11:02] LABS: BASOPHILS # (AUTO) 0.1 10^3/uL (0.0-0.1); BASOPHILS % (AUTO) 0.6 %; EOSINOPHILS # (AUTO) 0.1 10^3/uL (0.0-0.7); EOSINOPHILS % (AUTO) 1.2 %; HCT - HEMATOCRIT 39.6 % (37.0-47.0); HGB - HEMOGLOBIN 13.5 g/dL (12.0-16.0); LYMPHOCYTES # (AUTO) 2.4 10^3/uL (1.5-3.5); MEAN CORPUSCULAR HEMOGLOBIN 31.5 pg (27.0-31.0); MEAN CORPUSCULAR HGB CONC 34.1 g/dL (32.0-36.0); MEAN CORPUSCULAR VOLUME 92.5 fL (81.0-99.0); MEAN PLATELET VOLUME 9.5 fL (7.9-10.8); MONOCYTES # (AUTO) 0.7 10^3/uL (0.0-1.0); NEUTROPHILS # (AUTO) 7.6 10^3/uL (1.5-6.6); NEUTROPHILS % (AUTO) 69.6 %; PLT - PLATELET COUNT 225 10^3/uL (130-450); RED BLOOD COUNT 4.28 10^6/uL (4.20-5.40); RED CELL DISTRIBUTION WIDTH 12.6 % (12.0-15.0); WHITE BLOOD COUNT 10.9 x10^3/uL (4.8-10.8)
[2022-03-16 11:25] LABS: ALBUMIN 4.4 g/dL (3.2-5.5); ALBUMIN/GLOBULIN RATIO 1.6 (1.0-2.2); BILIRUBIN,TOTAL 0.6 mg/dL (0.2-1.0); CALCIUM 9.5 mg/dL (8.5-10.3); POTASSIUM 3.7 mmol/L (3.5-5.0); TOTAL PROTEIN 7.2 g/dL (6.7-8.2)
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
[2022-03-16 14:09] VITALS: BP 134/65
== END 2022-03-16 14:20 | disposition home or self-care (01) ==
LOC: EDUNIT# → ED 10:26
DX: S01.91XA Laceration without foreign body of unspecified part of head, initial encounter (principal); S06.0X9A Concussion with loss of consciousness of unspecified duration, initial encounter; S41.111A Laceration without foreign body of right upper arm, initial encounter; V49.9XXA Car occupant (driver) (passenger) injured in unspecified traffic accident, initial encounter
CPT/HCPCS: 12002; 36415; 70450; 71260; 72125; 74177; 80053; 83690; 85025; 96374; 99283; 99284; Q9967

== ENCOUNTER 2022-04-08 09:41 | Outpatient (CLI) | payer OTHER, BC ==
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
== END 2022-04-08 09:42 | disposition home or self-care (01) ==
LOC: DI 09:41
PROVIDERS: ATTEND Physician Assistant Medical
DX: M79.641 Pain in right hand (principal); R93.6 Abnormal findings on diagnostic imaging of limbs; M19.041 Primary osteoarthritis, right hand; M18.11 Unilateral primary osteoarthritis of first carpometacarpal joint, right hand